=== PATIENT | female | born 1995 | race Caucasian/White ===

== ENCOUNTER 2018-08-14 13:57 | Inpatient (IN) | payer SELFPAY ==
[~2018-08-14] VITALS: Ht 170.2 cm; Wt 94.1 kg
[2018-08-14] MEDS ORDERED: SODIUM CHLORIDE 0.9% 1,000 ML IVB ONE (14:26)
[2018-08-14] MEDS ORDERED: ONDANSETRON HCL 4 MG/2 ML VIAL IV ONE (14:30)
[2018-08-14 15:41] LABS: Urine Bacteria FEW /hpf (None Seen); Urine Blood TRACE /uL (Negative); Urine Mucus FEW (None Seen); Urine Specific Gravity 1.037 (1.001-1.035); Urine WBC 14 /hpf (0 - 5)
[2018-08-14 16:23] LABS: Basophils # (auto) 0 uL; Basophils % (auto) 0.1 % (0.0-2.0); Eosinophils # (auto) 0.2 uL; Eosinophils % (auto) 1.7 % (0.0-7.0); Hematocrit 38.8 % (36.0-46.0); Hemoglobin 12.9 g/dL (12.2-16.2); Lymphocytes % (auto) 25.9 % (10.0-50.0); Mean Corpuscular Hemoglobin 31.2 pg (28.0-32.0); Mean Corpuscular Hgb Conc. 33.3 g/dL (32.0-36.0); Mean Corpuscular Volume 93.8 fL (80.0-100.0); Monocytes # (auto) 0.7 uL; Monocytes % (auto) 5.9 % (0.0-12.0); Neutrophils # (auto) 7.8 uL; Neutrophils % (auto) 66.4 % (37.0-80.0); Nucleated Red Blood Cells % 0.1 %; Platelet Count (auto) 446 10^3/uL (140-450); Red Blood Cells 4.13 10^6/uL (4.0-5.20); Red Cell Distribution Width 14.1 % (11.8-14.3); White Blood Cell 11.7 10^3/uL (4.4-10.8)
[2018-08-14 16:35] LABS: Albumin 3.3 g/dL (3.4-5.0); Calcium 8.5 mg/dL (8.5-10.1); Potassium 3.4 mmol/L (3.5-5.1)
[2018-08-14 16:38] LABS: BUN/Creatinine Ratio 14.5
[2018-08-14 16:40] LABS: Bilirubin, Total 0.7 mg/dL (0.2-1.0); Total Protein 7.7 g/dL (6.4-8.2)
[2018-08-14] MEDS ORDERED: NITROFURANTOIN (MONO) 100 mg CAP PO ONE (16:45)
[2018-08-14] MEDS ORDERED: ONDANSETRON HCL 4 MG/2 ML VIAL IV PRN (17:45)
[2018-08-14 18:15] LABS: Amylase 32 U/L (25-115); Lipase 177 U/L (73-393)
[2018-08-14] MEDS ORDERED: cefTRIAXone 1GM/50ML D5W 50 ML IV SCH (18:30)
[2018-08-14] MEDS: SODIUM CHLORIDE 0.9% 1,000 ML IV SCH (18:47)
[2018-08-14 20:45] VITALS: BP 108/64
[2018-08-15] MEDS: SODIUM CHLORIDE 0.9% 1,000 ML IV SCH ×2 (03:39→13:39)
[2018-08-15 04:52] VITALS: BP 103/58
[2018-08-15 06:50] LABS: Basophils # (auto) 0 uL; Basophils % (auto) 0.2 % (0.0-2.0); Eosinophils # (auto) 0.2 uL; Eosinophils % (auto) 2.7 % (0.0-7.0); Hematocrit 35.7 % (36.0-46.0); Lymphocytes # (auto) 2.5 uL; Lymphocytes % (auto) 29.1 % (10.0-50.0); Mean Corpuscular Hemoglobin 31.3 pg (28.0-32.0); Mean Corpuscular Hgb Conc. 33.6 g/dL (32.0-36.0); Mean Corpuscular Volume 93.1 fL (80.0-100.0); Monocytes # (auto) 0.5 uL; Monocytes % (auto) 5.8 % (0.0-12.0); Neutrophils # (auto) 5.3 uL; Neutrophils % (auto) 62.2 % (37.0-80.0); Nucleated Red Blood Cells % 0.1 %; Platelet Count (auto) 369 10^3/uL (140-450); Red Blood Cells 3.83 10^6/uL (4.0-5.20); Red Cell Distribution Width 14.1 % (11.8-14.3); White Blood Cell 8.5 10^3/uL (4.4-10.8)
[2018-08-15 07:12] LABS: Amylase 24 U/L (25-115); Lipase 125 U/L (73-393)
[2018-08-15 07:13] LABS: Albumin 2.6 g/dL (3.4-5.0); Calcium 7.5 mg/dL (8.5-10.1); Potassium 3.4 mmol/L (3.5-5.1)
[2018-08-15 07:16] LABS: Bilirubin, Total 0.8 mg/dL (0.2-1.0); Total Protein 6.1 g/dL (6.4-8.2)
[2018-08-15 08:30] VITALS: BP 113/61
[2018-08-15 12:45] VITALS: BP 100/54
[2018-08-15] MEDS ORDERED: ONDA4TAB5 PO (16:01)
[2018-08-15] MEDS ORDERED: CEPH250C PO (16:01)
[2018-08-15 16:42] VITALS: BP 118/69
== END 2018-08-15 18:04 | disposition home or self-care (01) | DRG 833 ==
LOC: ER 13:57 → TELE 17:42 → TELE-CENTR 20:52
PROVIDERS: ADMIT Internal Medicine; ATTEND Internal Medicine
DX: O99.611 Diseases of the digestive system complicating pregnancy, first trimester (principal); O23.41 Unspecified infection of urinary tract in pregnancy, first trimester; K80.20 Calculus of gallbladder without cholecystitis without obstruction; Z3A.10 10 weeks gestation of pregnancy; O21.0 Mild hyperemesis gravidarum; J45.909 Unspecified asthma, uncomplicated; O99.511 Diseases of the respiratory system complicating pregnancy, first trimester; Z82.49 Family history of ischemic heart disease and other diseases of the circulatory system; Z83.3 Family history of diabetes mellitus; Z87.442 Personal history of urinary calculi; O99.211 Obesity complicating pregnancy, first trimester; E66.9 Obesity, unspecified; Z88.2 Allergy status to sulfonamides; O99.281 Endocrine, nutritional and metabolic diseases complicating pregnancy, first trimester; E87.6 Hypokalemia
CPT/HCPCS: 36415; 76705; 80053; 81001; 82150; 83690; 84702; 85025; 87086; 94761; 96361; 96365; 96375; G0378; J0696; J2405

== ENCOUNTER 2018-10-28 12:57 | Observation (INO) | payer MEDICAID ==
[~2018-10-28 12:57] MED LIST: CEPH250C PO; ONDA4TAB5 PO
[2018-10-28] MEDS ORDERED: PREN27TA7 OR (15:49)
== END 2018-10-28 15:45 | disposition home or self-care (01) | DRG 566 ==
LOC: ER 12:57 → LDRP 13:20
PROVIDERS: ADMIT Specialist; ATTEND Specialist
DX: O26.852 Spotting complicating pregnancy, second trimester (principal); O26.892 Other specified pregnancy related conditions, second trimester; N89.8 Other specified noninflammatory disorders of vagina; R10.9 Unspecified abdominal pain; Z3A.20 20 weeks gestation of pregnancy
CPT/HCPCS: 59025; 76815; 81002; G0378

== ENCOUNTER 2018-10-28 16:13 | Emergency (ER) | payer MEDICAID ==
[~2018-10-28] VITALS: Ht 172.7 cm; Wt 90.3 kg
[~2018-10-28 16:13] MED LIST changes: +PREN27TA7 OR
[2018-10-28] MEDS ORDERED: ACETAMINOPHEN 500 MG TAB PO ONE (19:15)
[2018-10-28 20:06] VITALS: BP 108/59
== END 2018-10-28 20:21 | disposition home or self-care (01) ==
LOC: ER 16:13
DX: O26.892 Other specified pregnancy related conditions, second trimester (principal); S13.4XXA Sprain of ligaments of cervical spine, initial encounter; S60.211A Contusion of right wrist, initial encounter; Z88.2 Allergy status to sulfonamides; Z3A.00 Weeks of gestation of pregnancy not specified; V43.62XA Car passenger injured in collision with other type car in traffic accident, initial encounter; Y93.89 Activity, other specified; Y92.488 Other paved roadways as the place of occurrence of the external cause; Y99.8 Other external cause status

== ENCOUNTER 2019-04-17 23:00 | Emergency (ER) | payer BC, MEDICAID ==
[~2019-04-17] VITALS: Ht 172.7 cm; Wt 86.2 kg
[~2019-04-17 23:00] MED LIST changes: -CEPH250C PO; +ONDA-144 PO; -ONDA4TAB5 PO
[2019-04-18] MEDS ORDERED: cefTRIAXone SOD 1,000 MG VL IM ONE (01:00)
[2019-04-18] MEDS ORDERED: ACETAMINOPHEN/CODEINE#3 (300/30mg) TAB PO ONE (01:00)
[2019-04-18] MEDS ORDERED: LIDOCAINE 1% HCL (LOCAL ANESTH.) INJ 20ML MDV ONE (01:25)
[2019-04-18 01:33] VITALS: BP 100/65
[2019-04-18] MEDS ORDERED: LIDOCAINE 1% HCL (LOCAL ANESTH.) INJ 20ML MDV ID ONE (01:45)
== END 2019-04-18 01:44 | disposition home or self-care (01) ==
LOC: ER 23:00
DX: O90.0 Disruption of cesarean delivery wound (principal); Z88.2 Allergy status to sulfonamides
CPT/HCPCS: 96372; 99283; J0696; J2001

== ENCOUNTER 2019-04-20 00:33 | Emergency (ER) | payer BC, MEDICAID ==
[~2019-04-20] VITALS: Ht 172.7 cm; Wt 86.2 kg
[2019-04-20 00:54] VITALS: BP 114/80
== END 2019-04-20 05:03 | disposition left against medical advice (07) ==
LOC: ER 00:38
DX: Z48.01 Encounter for change or removal of surgical wound dressing (principal); Z53.21 Procedure and treatment not carried out due to patient leaving prior to being seen by health care provider

== ENCOUNTER 2019-08-06 20:01 | Emergency (ER) | payer BC, MEDICAID ==
[~2019-08-06] VITALS: Ht 170.2 cm; Wt 90.3 kg
[2019-08-06 20:12] VITALS: BP 128/80
[2019-08-06 20:57] LABS: Basophils # (auto) 0 uL; Basophils % (auto) 0.3 % (0.0-2.0); Eosinophils # (auto) 0.2 uL; Eosinophils % (auto) 1.8 % (0.0-7.0); Hematocrit 38.7 % (36.0-46.0); Lymphocytes # (auto) 4.2 uL; Lymphocytes % (auto) 34.6 % (10.0-50.0); Mean Corpuscular Hemoglobin 30.1 pg (28.0-32.0); Mean Corpuscular Hgb Conc. 33.6 g/dL (32.0-36.0); Mean Corpuscular Volume 89.6 fL (80.0-100.0); Monocytes # (auto) 0.9 uL; Monocytes % (auto) 7.1 % (0.0-12.0); Neutrophils # (auto) 6.8 uL; Neutrophils % (auto) 56.2 % (37.0-80.0); Platelet Count (auto) 428 10^3/uL (140-450); Red Blood Cells 4.32 10^6/uL (4.0-5.20); Red Cell Distribution Width 14.3 % (11.8-14.3); White Blood Cell 12.1 10^3/uL (4.4-10.8)
[2019-08-06 21:14] LABS: Potassium 3.6 mmol/L (3.5-5.1)
[2019-08-06 21:21] LABS: Albumin 3.7 g/dL (3.4-5.0); BUN/Creatinine Ratio 12.5; Bilirubin, Total 0.5 mg/dL (0.2-1.0); Calcium 8.7 mg/dL (8.5-10.1); Total Protein 7.9 g/dL (6.4-8.2)
[2019-08-07] MEDS ORDERED: cefTRIAXone SOD 1,000 MG VL IM ONE (01:15)
[2019-08-07] MEDS ORDERED: PHENAZOPYRIDINE HCL 100 MG TAB PO ONE (01:15)
[2019-08-07] MEDS ORDERED: HYDROcodone-ACET 10/325MG TAB PO ONE (01:15)
== END 2019-08-07 02:22 | disposition home or self-care (01) ==
LOC: ER 20:01
DX: N20.0 Calculus of kidney (principal); N39.0 Urinary tract infection, site not specified; Z88.2 Allergy status to sulfonamides
CPT/HCPCS: 36415; 74176; 80053; 83690; 85025; 96372; 99284; J0696